=== PATIENT | female | born 2000 | race African-American/Black ===

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

== ENCOUNTER 2018-07-11 19:02 | Emergency (ER) | payer OTHER ==
[~2018-07-11] VITALS: Ht 165.1 cm; Wt 55.8 kg
[~2018-07-11 19:02] MED LIST changes: +ALBU2.5V8 INH; +IPRA3AMP29 NEB; +PRED20TA PO
[2018-07-11 19:43] VITALS: BP 123/65
[2018-07-11 20:58] LABS: BILIRUBIN,URINE NEGATIVE (NEG); CLARITY,URINE CLOUDY; COLOR,URINE YELLOW; NITRITE,URINE NEGATIVE (NEG); PROTEIN,URINE NEGATIVE (NEG-TRACE)
[2018-07-11] MEDS ORDERED: cefTRIAXone IM 250 MG VIAL IM ONE (21:15)
[2018-07-11] MEDS ORDERED: AZITHROMYCIN 250 MG TABLET. PO ONE (21:15)
[2018-07-11 21:22] LABS: BACTERIA,URINE FEW /HPF (0-FEW); RBC,URINE OCC /HPF (0-2); SQUAMOUS EPITHELIAL CELL,UR FEW /LPF; WBC,URINE OCC /HPF (0-4)
[2018-07-11] MEDS ORDERED: METR500T PO (21:58)
--- NOTE | 2018-07-12 05:39 | PHYS DOC ---
Past Medical History Past Medical History: Anemia, Asthma, Sickle Cell Disease Past Surgical History: No Surgical History Alcohol Use: None Drug Use: None Adult General Chief Complaint Chief Complaint: VAGINAL PROBLEM HPI HPI Patient is a 17 year old -[place] female presents with vaginal discharge and concern for STD exposure. No pelvic pain. Patient has control implant.] Review of Systems Review of Systems Review symptoms as per history of present illness. All other systems were reviewed and found to be within normal limits, except as documented in this note. Current Medications Current Medications Current Medications Medications (Trade) Dose Ordered Sig/Brigida Start Time Stop Time Status Last Admin Dose Admin Azithromycin (Zithromax) 1,000 mg 1X ONCE 07/11/18 21:15 07/11/18 21:16 DC 07/11/18 21:04 1,000 MG Ceftriaxone Sodium (Rocephin Im) 250 mg 1X ONCE 07/11/18 21:15 07/11/18 21:16 DC 07/11/18 21:04 250 MG Allergies Allergies Allergies Coded Allergies Type Severity Reaction Last Updated Verified morphine Allergy Mild rash 01/14/14 Yes Physical Exam Physical Exam Constitutional: Well developed, well nourished, no acute distress, non-toxic appearance. [] HENT: Normocephalic, atraumatic, bilateral external ears normal, oropharynx moist, no oral exudates, nose normal. [] Eyes: PERRLA, EOMI, conjunctiva normal, no discharge. [] . [] : Sternal genitalia normal, thick, grayish discharge, cervix, closed, no lesions her vaginal bleeding. [] Neurologic: Alert and oriented X 3, normal motor function, normal sensory function, no focal deficits noted. [] Psychologic: Affect normal, judgement normal, mood normal. [] Current Patient Data Vital Signs Vital Signs Date Time Temp Pulse Resp B/P (MAP) Pulse Ox O2 Delivery O2 Flow Rate FiO2 07/11/18 19:43 98.1 90 16 123/65 (84) 99 Room Air 98.1 Lab Values Laboratory Tests Test 07/11/18 19:56 07/11/18 20:43 POC Urine HCG, Qualitative Hcg negative (Negative) Urine Collection Type Unknown Urine Color Yellow Urine Clarity Cloudy Urine pH 6.0 Urine Specific [place] 1.025 Urine Protein Negative mg/dL (NEG-TRACE) Urine Glucose (UA) Negative mg/dL (NEG) Urine Ketones (Stick) Negative mg/dL (NEG) Urine Blood Negative (NEG) Urine Nitrite Negative (NEG) Urine Bilirubin Negative (NEG) Urine Urobilinogen Dipstick 1.0 mg/dL (0.2 mg/dL) Urine Leukocyte Esterase Negative (NEG) Urine RBC Occ /HPF (0-2) Urine WBC Occ /HPF (0-4) Urine Squamous Epithelial Cells Few /LPF Urine Bacteria Few /HPF (0-FEW) Urine Mucus Marked /LPF Microbiology 07/11/18 Wet Prep - Final, Complete EKG EKG [] Radiology/Procedures Radiology/Procedures [] Course & Med Decision Making Course & Med Decision Making Pertinent Labs and Imaging studies reviewed. (See chart for details) [Empiric abx Given. Recommend Follow-Up with Health Department and Treatment for Bacterial Vaginosis..] Dragon Disclaimer Dragon Disclaimer This electronic medical record was generated, in whole or in part, using a voice recognition dictation system. Departure Departure Impression: Primary Impression: Bacterial vaginosis Disposition: 01 HOME, SELF-CARE Condition: GOOD Patient Instructions: Bacterial Vaginosis, [id number] Additional Instructions: You were evaluated in the emergency department for pelvic cramping discharge. Initial lab results are consistent with bacterial vaginosis which is an overgrowth of your normal vaginal bacteria. Please take antibiotics as directed and follow-up with your PCP or APPEALS RN for ED culture results. Scripts Metronidazole (FLAGYL) 500 Mg Tablet 1 TAB PO BID, #14 TAB Prov: PHONG ADEN DO 07/11/18 PHONG ADEN DO Jul 12, 2018 05:39
[2018-07-13 13:25] LABS: GC PROBE Negative (Negative)
== END 2018-07-11 22:02 | disposition home or self-care (01) ==
LOC: ER 19:02
DX: N76.0 Acute vaginitis (principal); B96.89 Other specified bacterial agents as the cause of diseases classified elsewhere; J45.909 Unspecified asthma, uncomplicated; Z88.5 Allergy status to narcotic agent
CPT/HCPCS: 81001; 81025; 87491; 87591; 96372; 99283; J0696; Q0111; Q0144

== ENCOUNTER 2020-01-16 18:26 | Emergency (ER) | payer MEDICAID, OTHER ==
[~2020-01-16] VITALS: Ht 165.1 cm; Wt 60.0 kg
[~2020-01-16 18:26] MED LIST changes: +METR500T PO
[2020-01-16 18:54] LABS: BILIRUBIN,URINE NEGATIVE (NEG); CLARITY,URINE CLEAR; COLOR,URINE YELLOW; NITRITE,URINE NEGATIVE (NEG); PROTEIN,URINE NEGATIVE (NEG-TRACE)
[2020-01-16 19:00] LABS: SQUAMOUS EPITHELIAL CELL,UR MANY /LPF
[2020-01-16 19:13] LABS: BACTERIA,URINE MODERATE /HPF (0-FEW)
[2020-01-16 19:14] LABS: RBC,URINE 0 /HPF (0-2); WBC,URINE OCC /HPF (0-4)
--- NOTE | 2020-01-16 19:47 | PHYS DOC ---
Past Medical History Past Medical History: Anemia, Asthma, Sickle Cell Disease Past Surgical History: No Surgical History Smoking Status: Current Every Day Smoker Alcohol Use: Rarely Drug Use: None General Adult EDM: Chief Complaint: PELVIC PAIN HPI: HPI: Patient is a 19 year old AA female who presents to the emergency department with complaints of vaginal spotting and pelvic pain that began this morning. She denies any irregular vaginal discharge, vaginal odor, dysuria, hematuria, increased urinary frequency, or back pain. She states her last menstrual cycle was on January 03. She reports that she currently has a Nexplanon in her arm that 1 year ago. She denies any fever, nausea, vomiting, diarrhea, constipation, body aches, cough, or fatigue. She states that her pelvic pain increases with urination but denies any difficulty urinating. She currently rates the pain a 6 out of 10 on the pain scale, the pain increases to 8 out of 10 with urination, she denies any alleviating factors or radiation of the pain. Review of Systems: Review of Systems: Constitutional: Denies fever or chills. [] HENT: Denies nasal congestion or sore throat. [] Respiratory: Denies cough or shortness of breath. [] Cardiovascular: Denies chest pain or edema. [] GI: Denies abdominal pain, nausea, vomiting, constipation, bloody stools, or diarrhea. [] : Denies dysuria; see HPI. [] Musculoskeletal: Denies back pain or joint pain. [] Integument: Denies rash. [] Neurologic: Denies headache Psychiatric: Denies depression or anxiety. [] Heart Score: Risk Factors: Risk Factors: DM, Current or recent (<one month) smoker, HTN, HLP, family history of CAD, obesity. Risk Scores: Score 0 - 3: 2.5% MACE over next 6 weeks - Discharge Home Score 4 - 6: 20.3% MACE over next 6 weeks - Admit for Clinical Observation Score 7 - 10: 72.7% MACE over next 6 weeks - Early Invasive Strategies Allergies: Allergies: Allergies Coded Allergies Type Severity Reaction Last Updated Verified morphine Allergy Mild rash 01/14/14 Yes Physical Exam: PE: constitutional: Well developed, well nourished, no acute distress, non-toxic appearance. HENT: Normocephalic, atraumatic, bilateral external ears normal, nose normal. Eyes: PERRLA, EOMI, conjunctiva normal, no discharge. Neck: Normal range of motion, no stridor. Cardiovascular: Heart rate regular rhythm Lungs & Thorax: Respirations even and unlabored, no retractions, no respiratory distress Pelvic Exam: Credit Collector present Yanira CENTENO Abdomen: Nontender, soft External Genitalia: Normal Skin Speculum: Normal vaginal mucosa, bloody cervical discharge Bimanual: No adnexal masses or tenderness, mild CMT Skin: Warm, dry, no erythema, no rash. Back: No tenderness Extremities: No cyanosis, ROM intact, no edema. Neurologic: Alert and oriented X 3, no focal deficits noted. Psychologic: Affect normal, judgement normal, mood normal. Current Patient Data: Labs: Laboratory Tests Test 01/16/20 18:40 01/16/20 18:45 Urine Collection Type Unknown Urine Color Yellow Urine Clarity Clear Urine pH 6.0 (<5.0-8.0) Urine Specific [place] 1.025 (1.000-1.030) Urine Protein Negative mg/dL (NEG-TRACE) Urine Glucose (UA) Negative mg/dL (NEG) Urine Ketones (Stick) Negative mg/dL (NEG) Urine Blood Small (NEG) Urine Nitrite Negative (NEG) Urine Bilirubin Negative (NEG) Urine Urobilinogen Dipstick 1.0 mg/dL (0.2 mg/dL) Urine Leukocyte Esterase Negative (NEG) Urine RBC 0 /HPF (0-2) Urine WBC Occ /HPF (0-4) Urine Squamous Epithelial Cells Many /LPF Urine Bacteria Moderate /HPF (0-FEW) Urine Mucus Marked /LPF POC Urine HCG, Qualitative Hcg negative (Negative) Vital Signs: Vital Signs Date Time Temp Pulse Resp B/P (MAP) Pulse Ox O2 Delivery O2 Flow Rate FiO2 01/16/20 18:43 97.9 66 16 121/75 (90) 100 Room Air 97.9 EKG: EKG: [] Radiology/Procedures: Radiology/Procedures: [] Course & Med Decision Making: Course & Med Decision Making Pertinent Labs and Imaging studies reviewed. (See chart for details) 19-year-old female who presents to the emergency department with complaints of pelvic pain and vaginal spotting that began this morning. UA is likely contaminated, not concerning for urinary tract infection. Pelvic exam is concerning for some mild cervical motion tenderness, and bloody cervical discharge with some yellow vaginal discharge. Wet mount is concerning for bacterial vaginosis. Will prescribe Flagyl 500 mg p.o. twice daily x10 days. advised patient that the gonorrhea and Chlamydia testing will not be available for 48 hours. Patient was treated prophylactically with 250 mg of IM Rocephin, and 1 g of PO Zithromax. Patient was instructed to avoid having intercourse until the results of gonorrhea and chlamydia testing are available, patient was notified that these results would not be available for 48 hours. If one or both of these tests is positive, patient needs to refrain from intercourse for approximately 1 week following the treatment of any current partners. Patient verbalized an understanding of home care, medications, follow-up, and return to ED instructions and was in agreement with the plan of care. [] Dragon Disclaimer: Dragon Disclaimer: This electronic medical record was generated, in whole or in part, using a voice recognition dictation system. Departure Departure Impression: Primary Impression: Bacterial vaginosis Disposition: HOME, SELF-CARE Condition: STABLE Referrals: NO PCP (PCP) Patient Instructions: Bacterial Vaginosis, [id number] Additional Instructions: Fill the prescription and use as directed. Recommend that you go to your local health department for comprehensive sexually transmitted disease testing. You have been treated for a suspected gonorrhea and chlamydia. Avoid having intercourse until the results of gonorrhea and chlamydia testing are available, these results will not be available for 48 hours. If one or both of these tests is positive, you need to refrain from intercourse for approximately 1 week following the treatment of any current partners. Follow-up with your primary care doctor if symptoms persist, return to ER symptoms worsen. Scripts Metronidazole (FLAGYL) 500 Mg Tablet 1 TAB PO BID, #14 TAB 0 Refills Prov: QIAN YEPEZ APRN 01/16/20 Justicifation of Admission Dx: Justifications for Admission: Justification of Admission Dx: N/A QIAN YEPEZ APRN Jan 16, 2020 19:47
[2020-01-16] MEDS ORDERED: AZITHROMYCIN 250 MG TABLET. PO ONE (20:00)
[2020-01-16] MEDS ORDERED: cefTRIAXone IM 250 MG VIAL IM ONE (20:00)
[2020-01-16] MEDS ORDERED: METR500T PO (20:24)
[2020-01-16 20:37] VITALS: BP 117/77
[2020-01-18 21:09] LABS: GC PROBE Negative (Negative)
== END 2020-01-16 20:40 | disposition home or self-care (01) ==
LOC: ER 18:26
DX: N76.0 Acute vaginitis (principal); B96.89 Other specified bacterial agents as the cause of diseases classified elsewhere; R10.2 Pelvic and perineal pain; R30.0 Dysuria; D57.1 Sickle-cell disease without crisis; D64.9 Anemia, unspecified; J45.909 Unspecified asthma, uncomplicated; F17.200 Nicotine dependence, unspecified, uncomplicated; Z88.0 Allergy status to penicillin
CPT/HCPCS: 81001; 81025; 87086; 87491; 87591; 96372; 99285; J0696; Q0111

== ENCOUNTER 2020-03-22 01:26 | Emergency (ER) | payer MEDICAID ==
[~2020-03-22] VITALS: Ht 165.1 cm; Wt 16.0 kg
[2020-03-22 01:35] VITALS: BP 116/76
== END 2020-03-22 02:45 | disposition left against medical advice (07) ==
LOC: ER 01:26 → EEVIPCON 01:26 → ER 02:45
DX: H57.89 Other specified disorders of eye and adnexa (principal); Z53.21 Procedure and treatment not carried out due to patient leaving prior to being seen by health care provider